=== PATIENT | male | born 1955 | race Two or more races ===

== ENCOUNTER 2024-01-22 05:45 | Day surgery (SDC) | payer OTHER ==
[2024-01-22] MEDS ORDERED: DIPHENHYDRAMINE HCL 50 MG/ML VIAL 1ML IV ONE (11:00)
[2024-01-22] MEDS ORDERED: MIDAZOLAM HCL 2 MG/2 ML VIAL IV ONE (11:00)
[2024-01-22] MEDS ORDERED: fentaNYL CITRATE 50 MCG/ML AMPUL IV PUSH ONE (11:00)
[2024-01-23] MEDS ORDERED: DIPHENHYDRAMINE HCL 50 MG/ML VIAL 1ML IV ONE (09:45)
[2024-01-23] MEDS ORDERED: FentaNYL CITRATE/PF 50MCG/ML 2ML VIAL IJ ONE (09:45)
[2024-01-23] MEDS ORDERED: MIDAZOLAM HCL 2 MG/2 ML VIAL IV ONE (09:45)
== END 2024-01-22 12:35 | disposition home or self-care (01) ==
LOC: AMB-ENDOS 05:45
PROVIDERS: ATTEND Surgery
DX: K63.5 Polyp of colon (principal); K57.30 Diverticulosis of large intestine without perforation or abscess without bleeding

== ENCOUNTER 2024-06-11 11:23 | Inpatient (IN) | payer OTHER ==
[~2024-06-11] VITALS: Ht 180.3 cm; Wt 82.6 kg
[2024-06-17] MEDS ORDERED: METRONIDAZOLE/SODIUM CHLORIDE 500 MG/100 ML PIGGYBACK IV SCH (08:45)
[2024-06-17] MEDS ORDERED: levoFLOXacin IN DEXTROSE 5 % 5 MG/ML PIGGYBAG IV ONE (08:45)
[2024-06-17] MEDS ORDERED: OxyCODONE HCL 5 MG TABLET (ROXICODONE) PO PRN (09:30)
[2024-06-17] MEDS ORDERED: RINGERS SOLUTION,LACTATED 1,000 ML IV SCH (09:30)
[2024-06-17] MEDS ORDERED: ONDANSETRON HCL 2 MG/ML VIAL IV PRN (09:30)
[2024-06-17] MEDS ORDERED: MORPHINE SULFATE 4 MG/ML CARTRIDGE IV PRN (09:30)
[2024-06-17] MEDS ORDERED: DEXTROSE 50 % IN WATER 0.5 G/ML DISP.SYRIN IV PRN (09:30)
[2024-06-17] MEDS ORDERED: MORPHINE SULFATE 4 MG/ML VIAL IV ONE ×2 (10:05→10:55)
[2024-06-17 10:49] LABS: HEMATOCRIT 39.7 % (39.0-48.0); HEMOGLOBIN 13.4 g/dL (13-16.00); MEAN CORPUSCULAR HEMOGLOBIN 32.3 pg (27.00-32.0); MEAN CORPUSCULAR HGB CONC 33.6 g/dl (32.0-36.0); PLATELET COUNT 189 K/uL (150-450); RED BLOOD COUNT 4.14 M/uL (4.00-6.00); RED CELL DISTRIBUTION WIDTH 13.9 % (11.5-14.5)
[2024-06-17 11:44] LABS: ALBUMIN 3.3 gm/dL (3.4-5.0); CREATININE SERUM 1.04 mg/dL (0.70-1.30); GFR 70.81; PHOSPHOROUS 2.8 mg/dL (2.5-4.9); POTASSIUM 5.1 mEq/L (3.5-5.1)
[2024-06-17 13:00] VITALS: BP 148/81; O2SAT 95
[2024-06-17] MEDS ORDERED: ACETAMINOPHEN 500 MG GEL..CAP PO SCH (14:00)
[2024-06-17 16:00] VITALS: BP 157/85; O2SAT 97
[2024-06-17] MEDS ORDERED: GABAPENTIN 300 MG CAPSULE PO SCH (17:00)
[2024-06-17] MEDS ORDERED: POLYETHYLENE GLYCOL 3350 17 GM BLIST.PACK PO SCH (17:00)
[2024-06-17] MEDS ORDERED: TAMSULOSIN HCL 0.4 MG CAP PO SCH (17:00)
[2024-06-17] MEDS ORDERED: FAMOTIDINE/PF 20 MG/2 ML VIAL IV PUSH SCH (21:00)
[2024-06-18 00:10] VITALS: BP 131/81; O2SAT 97
[2024-06-18 07:37] LABS: HEMATOCRIT 38.6 % (39.0-48.0); MEAN CELL VOLUME 96.1 fL (80.0-100.00); MEAN CORPUSCULAR HEMOGLOBIN 32.3 pg (27.00-32.0); MEAN CORPUSCULAR HGB CONC 33.6 g/dl (32.0-36.0); PLATELET COUNT 160 K/uL (150-450); RED BLOOD COUNT 4.02 M/uL (4.00-6.00); RED CELL DISTRIBUTION WIDTH 13.6 % (11.5-14.5)
[2024-06-18 08:05] LABS: ALBUMIN 3.1 gm/dL (3.4-5.0); CALCIUM 9.1 mg/dL (8.5-10.1); GFR 74.09; MAGNESIUM 2.1 mg/dL (1.8-2.4); PHOSPHOROUS 2.8 mg/dL (2.5-4.9); POTASSIUM 4.29 mEq/L (3.5-5.1)
[2024-06-18 08:15] VITALS: BP 133/78; O2SAT 95
[2024-06-18] MEDS ORDERED: ENOXAPARIN SODIUM 40 MG/0.4 ML SYRINGE SUBCUTANEO SCH (17:00)
[2024-06-18 17:56] VITALS: BP 120/82; O2SAT 95
[2024-06-19 00:40] VITALS: BP 136/75; O2SAT 97
[2024-06-19 04:48] LABS: HEMOGLOBIN 15.1 g/dL (13-16.00); MEAN CELL VOLUME 94.6 fL (80.0-100.00); MEAN CORPUSCULAR HEMOGLOBIN 32.5 pg (27.00-32.0); MEAN CORPUSCULAR HGB CONC 34.3 g/dl (32.0-36.0); PLATELET COUNT 173 K/uL (150-450); RED BLOOD COUNT 4.65 M/uL (4.00-6.00); RED CELL DISTRIBUTION WIDTH 13.7 % (11.5-14.5)
[2024-06-19 05:08] LABS: CALCIUM 9.8 mg/dL (8.5-10.1); CREATININE SERUM 1.1 mg/dL (0.70-1.30); GFR 66.37; MAGNESIUM 2.1 mg/dL (1.8-2.4); PHOSPHOROUS 3.2 mg/dL (2.5-4.9); POTASSIUM 4.69 mEq/L (3.5-5.1)
[2024-06-19 08:15] VITALS: BP 108/74; O2SAT 96
[2024-06-19] MEDS ORDERED: ENOXAPARIN SODIUM 40 MG/0.4 ML SYRINGE SUBCUTANEO SCH (09:00)
[2024-06-19] MEDS ORDERED: CIPROFLOXACIN IN 5 % DEXTROSE 200 ML IV SCH (11:15)
[2024-06-19] MEDS ORDERED: METRONIDAZOLE/SODIUM CHLORIDE 100 ML IV SCH (13:00)
[2024-06-19 16:00] VITALS: BP 119/71; O2SAT 94
[2024-06-19] MEDS ORDERED: AMINO ACIDS 4.25 %/DEXTROSE 5% 1,000 ML PERIFERAL SCH (17:00)
[2024-06-20] VITALS: BP 117/71; O2SAT 95
[2024-06-20 09:14] VITALS: BP 151/91; O2SAT 95
[2024-06-20 16:00] VITALS: BP 119/71; O2SAT 97
[2024-06-21 00:55] VITALS: BP 111/74; O2SAT 97
[2024-06-21 13:30] LABS: HEMOGLOBIN 15.3 g/dL (13-16.00); MEAN CORPUSCULAR HGB CONC 33.4 g/dl (32.0-36.0); PLATELET COUNT 216 K/uL (150-450); RED BLOOD COUNT 4.79 M/uL (4.00-6.00); RED CELL DISTRIBUTION WIDTH 13.4 % (11.5-14.5)
[2024-06-21 13:56] LABS: CALCIUM 9.7 mg/dL (8.5-10.1); CREATININE SERUM 1.19 mg/dL (0.70-1.30); GFR 60.61; MAGNESIUM 2.1 mg/dL (1.8-2.4); PHOSPHOROUS 2.7 mg/dL (2.5-4.9); POTASSIUM 4.02 mEq/L (3.5-5.1)
[2024-06-21 14:33] VITALS: BP 134/94; O2SAT 95
[2024-06-21 16:00] VITALS: BP 123/76; O2SAT 93
[2024-06-22 01:04] VITALS: BP 108/68; O2SAT 94
[2024-06-22] MEDS ORDERED: 0.9 % SODIUM CHLORIDE 1,000 ML IV SCH (13:00)
[2024-06-22 15:01] VITALS: BP 130/75; O2SAT 91
[2024-06-22 16:00] VITALS: BP 121/76; O2SAT 93
[2024-06-23 00:38] VITALS: BP 111/72; O2SAT 94
[2024-06-23 06:32] LABS: HEMATOCRIT 36.5 % (39.0-48.0); HEMOGLOBIN 12.5 g/dL (13-16.00); MEAN CELL VOLUME 94.7 fL (80.0-100.00); MEAN CORPUSCULAR HEMOGLOBIN 32.3 pg (27.00-32.0); MEAN CORPUSCULAR HGB CONC 34.2 g/dl (32.0-36.0); PLATELET COUNT 186 K/uL (150-450); RED BLOOD COUNT 3.86 M/uL (4.00-6.00)
[2024-06-23 06:49] LABS: INR 1.22; PROTHROMBIN TIME 13.1 SECONDS (9.0-11.5)
[2024-06-23 07:06] LABS: ALBUMIN 2.4 gm/dL (3.4-5.0); BILIRUBIN TOTAL 0.66 mg/dL (0.3-1.2); BILIRUBIN,CONJUGATED 0.28 mg/dL (0.0-0.2); BILIRUBIN,UNCONJUGATED 0.38 mg/dL (0.0-0.6); CALCIUM 8.1 mg/dL (8.5-10.1); CHOL HDL RATIO 2.5 (0-5.0); CREATININE SERUM 1.18 mg/dL (0.70-1.30); GFR 61.21; GLOBULINA 2.7 G/DL (2.4-3.5); MAGNESIUM 1.7 mg/dL (1.8-2.4); PHOSPHOROUS 2.6 mg/dL (2.5-4.9); POTASSIUM 3.26 mEq/L (3.5-5.1); TOTAL PROTEIN 5.1 gm/dL (6.4-8.2)
[2024-06-23 08:00] VITALS: BP 118/78; O2SAT 93
[2024-06-23] MEDS ORDERED: MAGNESIUM SULFATE IN WATER 50 ML IV NR (11:00)
[2024-06-23] MEDS ORDERED: POTASSIUM CHLORIDE 20MEQ/100ML H2O PB IV NR (12:00)
[2024-06-23 17:13] VITALS: BP 11/70; O2SAT 95
[2024-06-24 00:40] VITALS: BP 121/68; O2SAT 96
[2024-06-24] MEDS ORDERED: DIATRIZOATE MEGLUMINE, SODIUM 30 ML BOTTLE PO ONE (06:00)
[2024-06-24 08:00] VITALS: BP 101/65; O2SAT 95
[2024-06-24 09:04] LABS: UREA CLEARANCE 29.6 ML/MIN
[2024-06-24] MEDS ORDERED: METOCLOPRAMIDE HCL 5 MG/ML VIAL IV SCH (17:00)
[2024-06-24 17:06] VITALS: BP 120/70; O2SAT 95
[2024-06-25 00:44] VITALS: BP 138/78; O2SAT 97
[2024-06-25 08:00] VITALS: BP 123/67; O2SAT 95
[2024-06-25 16:53] VITALS: BP 118/72; O2SAT 96
[2024-06-26 00:26] VITALS: BP 112/69; O2SAT 95
[2024-06-26 08:51] LABS: HEMATOCRIT 31.9 % (39.0-48.0); HEMOGLOBIN 11.3 g/dL (13-16.00); MEAN CORPUSCULAR HEMOGLOBIN 32.5 pg (27.00-32.0); MEAN CORPUSCULAR HGB CONC 35.3 g/dl (32.0-36.0); PLATELET COUNT 227 K/uL (150-450); RED BLOOD COUNT 3.47 M/uL (4.00-6.00); RED CELL DISTRIBUTION WIDTH 13.5 % (11.5-14.5)
[2024-06-26 09:06] VITALS: BP 121/71; O2SAT 97
[2024-06-26 09:15] LABS: ALBUMIN 2.3 gm/dL (3.4-5.0); BILIRUBIN TOTAL 0.4 mg/dL (0.3-1.2); CALCIUM 7.8 mg/dL (8.5-10.1); CREATININE SERUM 0.83 mg/dL (0.70-1.30); GFR 91.86; GLOBULINA 2.5 G/DL (2.4-3.5); MAGNESIUM 1.9 mg/dL (1.8-2.4); PHOSPHOROUS 2.2 mg/dL (2.5-4.9); TOTAL PROTEIN 4.8 gm/dL (6.4-8.2)
[2024-06-26 09:28] LABS: C-REACTIVE PROTEIN 2.14 MG/DL (0.00-0.29)
[2024-06-26 09:30] LABS: POTASSIUM 2.98 mEq/L (3.5-5.1)
[2024-06-26] MEDS ORDERED: POTASSIUM CHLORIDE 20MEQ/100ML H2O PB IV NR (10:00)
[2024-06-26] MEDS ORDERED: POTASSIUM PHOS,M-BASIC-D-BASIC 3 MM/ML VIAL IV NR (10:00)
[2024-06-26 16:34] VITALS: BP 139/79; O2SAT 96
[2024-06-27 00:30] VITALS: BP 140/62; O2SAT 98
[2024-06-27] MEDS ORDERED: METRONIDAZOLE/SODIUM CHLORIDE 100 ML IV SCH (05:00)
[2024-06-27 08:36] VITALS: BP 133/68; O2SAT 96
[2024-06-27] MEDS ORDERED: CIPROFLOXACIN IN 5 % DEXTROSE 200 ML IV SCH (09:00)
[2024-06-27] MEDS ORDERED: THIAMINE HCL 100 MG/ML 2 ML VIAL IV SCH (09:00)
[2024-06-27] MEDS ORDERED: LACTOBACILLUS ACIDOPHILUS 1 CAP CAP PO NR (13:00)
[2024-06-27 16:23] VITALS: BP 145/77; O2SAT 97
[2024-06-27] MEDS ORDERED: LACTOBACILLUS ACIDOPHILUS 1 CAP CAP PO SCH (17:00)
[2024-06-28] VITALS: BP 116/66; O2SAT 95
[2024-06-28 08:22] VITALS: BP 132/76; O2SAT 96
[2024-06-28 10:18] LABS: ALBUMIN 2.7 gm/dL (3.4-5.0); CALCIUM 8.1 mg/dL (8.5-10.1); CREATININE SERUM 0.81 mg/dL (0.70-1.30); GFR 94.48; PHOSPHOROUS 2.5 mg/dL (2.5-4.9); POTASSIUM 3.16 mEq/L (3.5-5.1)
[2024-06-28] MEDS ORDERED: POTASSIUM CHLORIDE IN WATER 100 ML IV NR (12:00)
[2024-06-28 16:00] VITALS: BP 103/62; O2SAT 99
[2024-06-29] VITALS: BP 124/71; O2SAT 96
[2024-06-29 08:39] VITALS: BP 144/81; O2SAT 99
[2024-06-29] MEDS ORDERED: POTASSIUM CHLORIDE IN WATER 100 ML IV NR (12:00)
[2024-06-29] MEDS ORDERED: INTESTINEX680 M1 PO (12:15)
[2024-06-29] MEDS ORDERED: PRILOSEC OTC20 MG PO (12:15)
[2024-06-29] MEDS ORDERED: TYLENOL ARTHRI650 MG PO (12:15)
[2024-06-29] MEDS ORDERED: POTASSIUM CHLORIDE 10 MEQ CAPSULE PO STA (13:14)
== END 2024-06-29 16:35 | disposition home or self-care (01) | DRG 330 ==
LOC: O/R 06-17 04:30 → SURH 06-17 04:30
PROVIDERS: Internal Medicine Geriatric Medicine; ADMIT Surgery; ATTEND Surgery
PROC: 07BC4ZZ Excision of Pelvis Lymphatic, Percutaneous Endoscopic Approach (ICD-10-PCS; 2024-06-17)
PROC: 0DBU4ZZ Excision of Omentum, Percutaneous Endoscopic Approach (ICD-10-PCS; 2024-06-17)
PROC: 0DTF4ZZ Resection of Right Large Intestine, Percutaneous Endoscopic Approach (ICD-10-PCS; principal; 2024-06-17 13:15)
PROC: 0D9670Z Drainage of Stomach with Drainage Device, Via Natural or Artificial Opening (ICD-10-PCS; 2024-06-18)
PROC: 02HV33Z Insertion of Infusion Device into Superior Vena Cava, Percutaneous Approach (ICD-10-PCS; 2024-06-23)
PROC: 3E0436Z Introduction of Nutritional Substance into Central Vein, Percutaneous Approach (ICD-10-PCS; 2024-06-23)
PROC: BW21YZZ Computerized Tomography (CT Scan) of Abdomen and Pelvis using Other Contrast (ICD-10-PCS; 2024-06-24)
PROC: B54NZZZ Ultrasonography of Left Upper Extremity Veins (ICD-10-PCS; 2024-06-27)
DX: D12.3 Benign neoplasm of transverse colon (principal); K56.7 Ileus, unspecified; K92.1 Melena; K91.89 Other postprocedural complications and disorders of digestive system; T80.1XXA Vascular complications following infusion, transfusion and therapeutic injection, initial encounter; I80.8 Phlebitis and thrombophlebitis of other sites; D72.829 Elevated white blood cell count, unspecified; E87.6 Hypokalemia; D12.2 Benign neoplasm of ascending colon; D12.0 Benign neoplasm of cecum; R59.0 Localized enlarged lymph nodes; N40.0 Benign prostatic hyperplasia without lower urinary tract symptoms; Y84.8 Other medical procedures as the cause of abnormal reaction of the patient, or of later complication, without mention of misadventure at the time of the procedure; Y92.230 Patient room in hospital as the place of occurrence of the external cause